=== PATIENT | female | born 1985 | race Two or more races ===

== ENCOUNTER 2017-05-09 18:06 | Emergency (ER) | payer OTHER ==
[~2017-05-09] VITALS: Ht 165.1 cm; Wt 61.2 kg
[2017-05-09 18:06] VITALS: BP 150/86
[2017-05-09] MEDS ORDERED: ALPR0.25 PO (18:41)
[2017-05-09] MEDS ORDERED: BUPR100T5 PO (18:41)
[2017-05-09] MEDS ORDERED: ERYT3.5O9 EACHEYE (18:41)
[2017-05-09] MEDS ORDERED: CEPH500C2 PO (18:41)
== END 2017-05-09 19:03 | disposition home or self-care (01) ==
LOC: ER 18:14
DX: H00.031 Abscess of right upper eyelid (principal)
CPT/HCPCS: 99283; A4606; Z7610